=== PATIENT | male | born 1940 | race Caucasian/White ===

== ENCOUNTER 2017-12-25 13:11 | Observation (INO) | payer BC, MEDICARE ==
--- NOTE | 2017-12-25 13:19 | EDM.PDOC ---
ED HPI GENERAL MEDICAL PROBLEM - General Chief Complaint: Trauma Stated Complaint: FELL OF A LADDER Time Seen by Provider: 12/25/17 13:11 Source of Information: Reports: Patient History Limitations: Reports: No Limitations - History of Present Illness INITIAL COMMENTS - FREE TEXT/NARRATIVE: 77 YO WM presents to ER after fall off a ladder while clean gutters. It was estimated pt was approximately 6-8 ft high when he fell. Pt is currently alert and oriented but doesn't remember events of the fall. states pt called her from his cellphone and was able to get up on his own and sit on a chair by the time she came outside and arrived on the scene. Pt arrived by private car. Pts only complaint is left frontal headache and left sided facial laceration. Pt denies nausea/vomiting, no dizziness, no chest pain or palpitations. Pt denies neck pain or abdominal/pelvic pain. Pt with PMH of atrial Fib but had ablation and denies taking anticoagulation. Pt reports taking ASA 325mg PO QD. Onset: Today Onset Date: 12/25/17 Onset Time: 13:30 Duration: Hour(s): (1) Location: Reports: Head, Face Quality: Reports: Ache Severity: Moderate Improves with: Reports: None Worsens with: Reports: None Associated Symptoms: Reports: Confusion, Cough, Headaches. Denies: Chest Pain, Nausea/Vomiting, Shortness of Breath - Related Data Allergies Allergy/AdvReac Type Severity Reaction Status Date / Time prochlorperazine edisylate AdvReac Chills Verified 12/25/17 13:36 [From Compazine] Home Meds: Home Meds Aspirin [Halfprin] 81 mg PO DAILY 12/25/17 [History] Sotalol HCl [Sotalol] 30 mg PO Q2D 12/25/17 [History] Review of Systems - Review of Systems Review Of Systems: See Below Constitutional: Reports: No Symptoms Eyes: Reports: No Symptoms Ears: Reports: No Symptoms Nose: Reports: No Symptoms Mouth/Throat: Reports: No Symptoms Respiratory: Reports: No Symptoms Cardiovascular: Reports: No Symptoms GI/Abdominal: Reports: No Symptoms Genitourinary: Reports: No Symptoms Musculoskeletal: Reports: No Symptoms Skin: Reports: Wound (12cm left forehead laceration) Neurological: Reports: Confusion, Headache. Denies: Dizziness Psychiatric: Reports: Confusion ED EXAM, GENERAL - Physical Exam Exam: See Below Exam Limited By: No Limitations General Appearance: Alert, WD/WN, No Apparent Distress Eye Exam: Bilateral Eye: EOMI, PERRL Nose: Normal Inspection, Normal Mucosa, No Blood Throat/Mouth: Normal Inspection, Normal Lips, Normal Teeth, Normal Gums, Normal Oropharynx, Normal Voice, No Airway Compromise Head: Normocephalic. No: Atraumatic Neck: Normal Inspection, Supple, Non-Tender, Full Range of Motion Respiratory/Chest: No Respiratory Distress, Lungs Clear, Normal Breath Sounds, No Accessory Muscle Use, Chest Non-Tender Cardiovascular: Normal Peripheral Pulses, Regular Rate, Rhythm, No Edema, No Gallop, No JVD, No Murmur, No Rub GI/Abdominal: Normal Bowel Sounds, Soft, Non-Tender, No Organomegaly, No Distention, No Abnormal Bruit, No Mass Back Exam: Normal Inspection, Full Range of Motion, NT Extremities: Normal Inspection, Normal Range of Motion, Non-Tender, Normal Capillary Refill, No Pedal Edema Neurological: Alert, Oriented, CN II-XII Intact, Normal Cognition, Normal Gait, Normal Reflexes, No Motor/Sensory Deficits Psychiatric: Normal Affect, Normal Mood Skin Exam: Wound/Incision (12cm left forehead laceration) Lymphatic: No Adenopathy ED TRAUMA PROCEDURES - Laceration/Wound Repair Left Forehead Lac/Wound Length In cm: 10 Appearance: Superficial, Subcutaneous, Irregular Distal NVT: Neuro & Vascular Intact Anesthetic Type: Local Local Anesthesia - Lidocaine (Xylocaine): 2% Plain Local Anesthetic Volume: Other (10) Skin Prep: Providone-Iodine (Betadine), Saline Exploration/Debridement/Repair: Wound Explored, Explored to Base Closed With: Sutures Suture Size: other # of Sutures: 15 Suture Type: Prolene, Nylon, Simple Sterile Dressing Applied: Provider Tetanus Status Addressed: Yes Complications: No EKG INTERPRETATION EKG Date: 12/25/17 Time: 13:40 Rhythm: NSR Rate (Beats/Min): 65 [place]: Normal P-Wave: Present QRS: Normal ST-T: Normal QT: Normal Comparison: NA - No Prior EKG Course - Vital Signs Last Recorded V/S: Last Vital Signs Temp 35.4 C 12/25/17 13:28 Pulse 66 12/25/17 13:28 Resp 18 12/25/17 13:28 BP 134/76 12/25/17 13:28 Pulse Ox 95 12/25/17 13:28 - Orders/Labs/Meds Orders: Active Orders 24 hr Category Date Time Status EKG Documentation Completion [RC] ASDIRECTED Care 12/25/17 13:24 Active Cervical Spine wo Cont [CT] Stat Exams 12/25/17 13:18 Ordered Chest 2V [CR] Stat Exams 12/25/17 13:18 Ordered Head wo Cont [CT] Stat Exams 12/25/17 13:18 Ordered Pelvis 1V or 2V [CR] Stat Exams 12/25/17 13:18 Ordered EKG 12 Lead [EK] Routine Ther 12/25/17 13:24 Ordered Meds: Medications Discontinued Medications Generic Name Dose Route Start Last Admin Trade Name Freq PRN Reason Stop Dose Admin Lidocaine Confirm 12/25/17 14:06 12/25/17 15:02 Xylocaine-Mpf 2% Administered 12/25/17 14:07 5 ml Dose Administration 5 ml .ROUTE .STK-MED ONE Lidocaine Confirm 12/25/17 14:14 12/25/17 15:02 Xylocaine-Mpf 2% Administered 12/25/17 14:15 5 ml Dose Administration 5 ml .ROUTE .STK-MED ONE Neomycin/Polymyxin/Bacitracin Confirm 12/25/17 15:11 Triple Antibiotic Oint Administered 12/25/17 15:12 Dose 1 each .ROUTE .STK-MED ONE - Radiology Interpretation Free Text/Narrative:: CT head- NAD CT cervical- NAD CXR- NAD Pelvis- NAD Departure - Departure Time of Disposition: 15:36 Disposition: Refer to Observation Condition: Fair Clinical Impression: Concussion injury of brain Facial laceration Qualifiers: Encounter type: initial encounter Qualified Code(s): S01.81XA - Laceration without foreign body of other part of head, initial encounter Fall from ladder Qualifiers: Encounter type: initial encounter Qualified Code(s): W11.XXXA - Fall on and from ladder, initial encounter - Discharge Information Referrals: PCP,Not In Area [Primary Care Provider] - Forms: ED Department Discharge - My Orders Last 24 Hours: My Active Orders 12/25/17 13:18 Cervical Spine wo Cont [CT] Stat Chest 2V [CR] Stat Head wo Cont [CT] Stat Pelvis 1V or 2V [CR] Stat 12/25/17 13:24 EKG Documentation Completion [RC] ASDIRECTED EKG 12 Lead [EK] Routine - Assessment/Plan Last 24 Hours: My Active Orders 12/25/17 13:18 Cervical Spine wo Cont [CT] Stat Chest 2V [CR] Stat Head wo Cont [CT] Stat Pelvis 1V or 2V [CR] Stat 12/25/17 13:24 EKG Documentation Completion [RC] ASDIRECTED EKG 12 Lead [EK] Routine Assessment:: 1. head injury with concussion 2. facial laceration 3. fall of approximately 6-8 ft Plan: 1. admit for obs- Dr Maximo Valdez 2. supportive care 3. neuro checks 4. hydrocodone 5/325 PO Q4-6 PRN pain
[2017-12-25] MEDS ORDERED: Lidocaine 2% 5 ML SDV ONE ×2 (14:06→14:14)
[2017-12-25] MEDS ORDERED: Bacitracin/Neomycin/Polymyxin B Oint 0.9 GM U/D Packet ONE (15:11)
[2017-12-25] MEDS ORDERED: Acetaminophen/HYDROcodone 325-5 MG Tab PO PRN (15:38)
[2017-12-26] MEDS ORDERED: Sotalol 80 MG Tab PO SCH (09:00)
--- NOTE | 2017-12-26 12:09 | PCM.DCSUM1 ---
Discharge Summary - Hospital Course Free Text/Narrative:: Documentation is for same day admission and discharge. 77yoM with a history of atrial fibrillation s/p ablation now on sotalol who sustained an unwitnessed fall from 6-8 feet while on a ladder cleaning gutters. He was able to call his after the incident and she brought him to the [facility] ED for further evaluation. EKG, CT head, CT C-spine, CXR, and XR pelvis were unremarkable. A large linear left forehead incision was repaired. He had initial poor recollection of the event and was admitted for close monitoring. Recent laboratory studies were reviewed and unremarkable. Neuro checks and vital signs were normal throughout stay. Pain was controlled without analgesics. He doesnt remember the events immediately surrounding the fall, but has otherwise intact memory. Home medications were continued during his stay. XR was obtained on the morning of discharge and notable for degenerative changes without acute abnormality. He will follow-up next week in the clinic. PMH: - Atrial fibrillation - BPH - Colon cancer PSH: - Appendectomy - Upper endoscopy, 11/22/13 - Colonoscopy, 11/22/13 - Bronchoscopy, 12/01/17 Family History: - Mother, d.: stroke, breast cancer - Father, d.: stroke, heart attack, diabetes - Sister: bowel obstruction Social History: - , lives with in [place], 4 children. - Retired at. - No alcohol use, no tobacco use, no drug use. Medications: - Sotalol 30mg po every other day - Aspirin 325mg po daily Allergies: - Atenolol - Prochlorperazine - Discharge Data Discharge Date: 12/26/17 Discharge Disposition: Home, Self-Care 01 Condition: Good - Patient Instructions Diet: Usual Diet as Tolerated Activity: Apply Ice, As Tolerated Showering/Bathing: May Shower Wound/Incision Care: Keep Operative Site/Wound Site Clean and Dry Notify Provider of: Fever, Increased Pain - Discharge Plan *PRESCRIPTION DRUG MONITORING PROGRAM REVIEWED*: Not Applicable *COPY OF PRESCRIPTION DRUG MONITORING REPORT IN PATIENT RITU: Not Applicable Home Medications: Home Meds Aspirin [Halfprin] 81 mg PO DAILY 12/25/17 [History] Sotalol HCl [Sotalol] 60 mg PO Q2D@0900 12/25/17 [History] Referrals: Yoly Rodriguez MD [Physician] - 01/01/18 1:00 pm (Took care of scheduling already.) - Discharge Summary/Plan Comment DC Time >30 min.: Yes - General Info Date of Service: 12/26/17 Subjective Update: Mr. Pearson was in his usual state of health and was cleaning the gutters of his house when he sustained an unwitnessed fall from 6-8 feet on the ladder. He apparently got his phone and called his who then arrived and brought him to the [facility] ED. He initially had poor recollection of events, but it has since improved and he only doesn't remember the fall itself. Prior to and subsequently this morning, he denies any headache, vision changes, chest pain, or shortness of breath. He does complain of pain in his right great toe. Ambulating without difficulty. Voiding without difficulty. Used ice on his forehead laceration with improvement in minor discomfort. A 10 system review of systems was performed and negative except per HPI. - Patient Data Vitals - Most Recent: Last Vital Signs Temp 36.8 C 12/26/17 06:08 Pulse 71 12/26/17 10:10 Resp 18 12/26/17 06:08 BP 129/77 12/26/17 10:10 Pulse Ox 97 12/26/17 06:08 Weight - Most Recent: 81.556 kg I&O - Last 24 hours: Intake & Output 12/25/17 12/26/17 12/26/17 22:59 06:59 14:59 Intake Total 650 360 Output Total 600 Balance 50 360 Med Orders - Current: Current Medications Hydrocodone Bitart/Acetaminophen ([place] 325-5 Mg) 1 tab PO Q4H PRN PRN Reason: Pain (moderate 4-6) Last Admin: 12/25/17 16:00 Dose: 1 tab Sotalol HCl (Betapace) 60 mg PO Q2D@0900 SAMMI Last Admin: 12/26/17 10:10 Dose: 60 mg Discontinued Medications Lidocaine (Xylocaine-Mpf 2%) Confirm Administered Dose 5 ml .ROUTE .STK-MED ONE Stop: 12/25/17 14:07 Last Admin: 12/25/17 15:02 Dose: 5 ml Lidocaine (Xylocaine-Mpf 2%) Confirm Administered Dose 5 ml .ROUTE .STK-MED ONE Stop: 12/25/17 14:15 Last Admin: 12/25/17 15:02 Dose: 5 ml Neomycin/Polymyxin/Bacitracin (Triple Antibiotic Oint) Confirm Administered Dose 1 each .ROUTE .STK-MED ONE Stop: 12/25/17 15:12 Last Admin: 12/25/17 15:30 Dose: 1 each - Exam General: Reports: Alert, Oriented, Cooperative, No Acute Distress HEENT: Reports: Pupils Equal, Pupils Reactive, EOMI, Mucous Membr. Moist/Deep [place] Neck: Reports: Supple Lungs: Reports: Clear to Auscultation, Normal Respiratory Effort Cardiovascular: Reports: Regular Rate, Regular Rhythm, No Murmurs GI/Abdominal Exam: Normal Bowel Sounds, Soft, Non-Tender, No Distention, Pelvis Stable Back Exam: Reports: Normal Inspection, Full Range of Motion Extremities: Normal Inspection, Normal Range of Motion, No Pedal Edema, Normal Capillary Refill, Other (tenderness overlying R great toe MTP joint) Skin: Reports: Warm, Dry, Intact Wound/Incisions: Reports: No Drainage, Erythema Improving, Other (10cm long laceration overlying L eyebrow) Neurological: Reports: Normal Gait, Normal Speech, Normal Tone, Strength Equal Bilateral, Reflexes Equal Bilateral, Sensation Intact, Cranial Nerves Intact Psy/Mental Status: Reports: Alert, Normal Affect, Normal Mood
== END 2017-12-26 13:45 | disposition home or self-care (01) ==
LOC: KA.ED 13:11 → KA.MS 15:37 → UNDODISOB 12-26 13:45
PROVIDERS: ADMIT Physician Assistant Medical; ATTEND Family Medicine
DX: R51 Headache (principal); S01.81XA Laceration without foreign body of other part of head, initial encounter; M19.071 Primary osteoarthritis, right ankle and foot; Z79.82 Long term (current) use of aspirin; Z79.899 Other long term (current) drug therapy; Z88.8 Allergy status to other drugs, medicaments and biological substances; W11.XXXA Fall on and from ladder, initial encounter
CPT/HCPCS: 70160; 70450; 71046; 72125; 72170; 73620-RT; 93005; 99285; A9270-GY; G0378

== ENCOUNTER 2022-02-22 19:51 | Emergency (ER) | payer MEDICARE, BC ==
[2022-02-22 20:15] VITALS: BP 124/75; PULSE 63
[2022-02-22] MEDS ORDERED: Amoxicillin 500 MG Cap PO ONE (20:29)
[2022-02-22] MEDS ORDERED: Acetaminophen/HYDROcodone 325-5 MG Tab PO ONE (20:30)
== END 2022-02-22 20:50 | disposition home or self-care (01) ==
LOC: KA.ED 19:51
DX: K02.9 Dental caries, unspecified (principal); I48.91 Unspecified atrial fibrillation; Z79.82 Long term (current) use of aspirin; Z88.8 Allergy status to other drugs, medicaments and biological substances
CPT/HCPCS: 93010; 99283; 99284; A9270-GY

== ENCOUNTER 2023-12-08 09:00 | Day surgery (SDC) | payer MEDICARE, BC ==
[2023-12-08] MEDS ORDERED: Sodium Chloride 0.9% 10 ML Syringe FLUSH PRN (10:00)
[2023-12-08] MEDS: Lactated Ringers 1,000 ML IV SCH (10:16)
[2023-12-08] MEDS ORDERED: Propofol 200 MG/20 ML SDV IV ONE (11:00)
[2023-12-08] MEDS ORDERED: Midazolam 1 MG/ML 2 ML SDV IV ONE (11:00)
== END 2023-12-08 13:07 | disposition home or self-care (01) ==
LOC: KA.SDS 09:00
PROVIDERS: ATTEND Family Medicine
DX: Z12.11 Encounter for screening for malignant neoplasm of colon (principal); K57.30 Diverticulosis of large intestine without perforation or abscess without bleeding; K64.8 Other hemorrhoids; J47.9 Bronchiectasis, uncomplicated; K21.9 Gastro-esophageal reflux disease without esophagitis; C44.311 Basal cell carcinoma of skin of nose; R97.20 Elevated prostate specific antigen [PSA]; N40.1 Benign prostatic hyperplasia with lower urinary tract symptoms; R35.1 Nocturia; H52.203 Unspecified astigmatism, bilateral; H52.03 Hypermetropia, bilateral; H52.4 Presbyopia; H25.9 Unspecified age-related cataract; Z86.010 Personal history of colon polyps; Z85.038 Personal history of other malignant neoplasm of large intestine; Z79.899 Other long term (current) drug therapy; Z88.8 Allergy status to other drugs, medicaments and biological substances
CPT/HCPCS: J2250; J2704; J7120